=== PATIENT | female | born 1945 | race Caucasian/White ===

== ENCOUNTER → 2016-07-31 | Outpatient (CLI) | payer MEDICARE, OTHER | END | disposition home or self-care (01) | LOC: RAD 12:27 | DX: R05 Cough (principal); I10 Essential (primary) hypertension; R06.02 Shortness of breath ==

== ENCOUNTER 2024-12-08 19:23 | Emergency (ER) | payer MEDICARE ==
[~2024-12-08] VITALS: Ht 160 cm; Wt 81.2 kg
== END 2024-12-08 21:57 | disposition home or self-care (01) ==
LOC: ED 19:23
DX: S09.90XA Unspecified injury of head, initial encounter (principal); M47.812 Spondylosis without myelopathy or radiculopathy, cervical region; I10 Essential (primary) hypertension; Z88.6 Allergy status to analgesic agent; W10.8XXA Fall (on) (from) other stairs and steps, initial encounter; Y93.89 Activity, other specified; Y92.89 Other specified places as the place of occurrence of the external cause; Y99.8 Other external cause status